=== PATIENT | male | born 1990 | race Caucasian/White ===

== ENCOUNTER 2016-11-30 07:48 | Emergency (ER) | payer OTHER ==
[~2016-11-30] VITALS: Ht 167.6 cm; Wt 59.0 kg
[2016-11-30 07:51] VITALS: BP 129/96
== END 2016-11-30 08:24 | disposition home or self-care (01) ==
LOC: ED 07:48
DX: K04.7 Periapical abscess without sinus (principal)

== ENCOUNTER 2020-01-26 22:29 | Emergency (ER) | payer MEDICAID ==
[~2020-01-26] VITALS: Ht 167.6 cm; Wt 61.0 kg
[2020-01-26 22:40] VITALS: BP 142/106
== END 2020-01-26 23:48 | disposition home or self-care (01) ==
LOC: ED 22:29
DX: L40.9 Psoriasis, unspecified (principal); K64.9 Unspecified hemorrhoids; J45.909 Unspecified asthma, uncomplicated